=== PATIENT | female | born 1995 | race Caucasian/White ===

== ENCOUNTER 2017-02-15 20:14 | Inpatient (IN) | payer MEDICAID ==
[~2017-02-15] VITALS: Ht 160 cm; Wt 83.0 kg
[~2017-02-15 20:14] MED LIST: RISP.5 PO
[2017-02-15] MEDS ORDERED: HALOPERIDOL 5 MG TABLET PO PRN (21:30)
[2017-02-15] MEDS ORDERED: LORazepam 2 MG TABLET PO PRN (21:30)
[2017-02-15 22:15] VITALS: BP 127/77
[2017-02-16 00:10] VITALS: BP 125/73
[2017-02-16] MEDS: ZOLPIDEM TARTRATE 10 MG TABLET PO PRN ×2 (02:09→20:33)
[2017-02-16 07:47] LABS: BASOPHILS % (AUTO) 0.3 % (0.0-2.0); HEMATOCRIT 38.3 % (36-46); HEMOGLOBIN 12.7 g/dL (12.0-16.0); LYMPHOCYTES # (AUTO) 2.5 K/uL (1.0-4.8); LYMPHOCYTES % (AUTO) 32.7 % (22.0-44.0); MEAN CORPUSCULAR HEMOGLOBIN 30.6 pg (26.0-34.0); MEAN CORPUSCULAR HGB CONC 33.2 G/dL (31.0-37.0); MEAN CORPUSCULAR VOLUME 92 fL (80-100); MONOCYTES # (AUTO) 0.6 K/uL (0.1-1.0); MONOCYTES % (AUTO) 8.1 % (2.0-9.0); NEUTROPHILS # (AUTO) 4.4 K/uL (1.8-7.7); NEUTROPHILS % (AUTO) 56.9 % (40.0-70.0); PLATELET COUNT (AUTO) 314 K/uL (150-450); RED BLOOD CELL COUNT(AUTO) 4.16 MIL/uL (4.00-5.20); RED CELL DISTRIBUTION WIDTH 12.8 % (11.5-14.5); WHITE BLOOD COUNT (AUTO) 7.7 K/uL (4.5-11.0)
[2017-02-16 08:33] LABS: ALANINE AMINOTRANSFERASE 14 U/L (12-78); ALBUMIN 3.8 g/dL (3.4-5.0); ANION GAP 12 mmol/L (8-16); ASPARTATE AMINOTRANSFERASE 12 U/L (15-37); CALCIUM, TOTAL 8.9 mg/dL (8.8-10.5); CARBON DIOXIDE 23 mmol/L (22-29); CHLORIDE 106 mmol/L (98-107); GLOMERULAR FILTR. RATE CALC > 60 mL/min (>60); POTASSIUM 4.2 mmol/L (3.5-5.1); SODIUM SERUM 141 mmol/L (136-145); THYROID STIMULATING HORMONE 1.87 uIU/mL (0.36-3.74); TOTAL PROTEIN, SERUM 7.4 g/dL (6.4-8.2); UREA NITROGEN, BLOOD 8 mg/dL (7-18)
[2017-02-16] MEDS: LITHIUM CARBONATE 300 MG CAPSULE PO SCH ×2 (08:47→17:28)
[2017-02-16 08:51] LABS: LITHIUM < 0.20 mmol/L (0.60-1.20)
[2017-02-16 16:16] VITALS: BP 113/68
[2017-02-16] MEDS: RisperiDONE 0.5 MG TABLET PO SCH ×2 (17:28→20:33)
[2017-02-17 06:31] VITALS: BP 108/72
[2017-02-17] MEDS: RisperiDONE 0.5 MG TABLET PO SCH ×3 (09:55→20:13)
[2017-02-17] MEDS: LITHIUM CARBONATE 300 MG CAPSULE PO SCH ×2 (09:55→16:39)
[2017-02-17 16:19] VITALS: BP 134/92
[2017-02-17] MEDS: ZOLPIDEM TARTRATE 10 MG TABLET PO PRN (20:13)
[2017-02-18 01:36] VITALS: BP 117/83
[2017-02-18 08:18] VITALS: BP 115/67
[2017-02-18] MEDS: RisperiDONE 0.5 MG TABLET PO SCH ×3 (08:55→20:12)
[2017-02-18] MEDS: LITHIUM CARBONATE 300 MG CAPSULE PO SCH ×2 (08:55→16:38)
[2017-02-18 16:07] VITALS: BP 133/87
[2017-02-18] MEDS ORDERED: OMEPRAZOLE 20 MG CAPSULE PO ONE (19:45)
[2017-02-18] MEDS: ZOLPIDEM TARTRATE 10 MG TABLET PO PRN (20:12)
[2017-02-19 06:47] VITALS: BP 124/65
[2017-02-19 08:07] VITALS: BP 117/63
[2017-02-19] MEDS ORDERED: LITH300C3 PO (08:16)
[2017-02-19] MEDS ORDERED: OMEP20 PO (08:16)
[2017-02-19] MEDS ORDERED: RISP.5 PO (08:16)
[2017-02-19] MEDS: LITHIUM CARBONATE 300 MG CAPSULE PO SCH (08:18)
[2017-02-19] MEDS: RisperiDONE 0.5 MG TABLET PO SCH (08:18)
[2017-02-19] MEDS ORDERED: OMEPRAZOLE 20 MG CAPSULE PO SCH (09:00)
== END 2017-02-19 12:25 | disposition home or self-care (01) | DRG 750 ==
LOC: B3A 21:58 → EDSTATUS 23:10
PROVIDERS: ADMIT Psychiatry & Neurology Psychiatry; ATTEND Psychiatry & Neurology Psychiatry
DX: F20.0 Paranoid schizophrenia (principal); F32.9 Major depressive disorder, single episode, unspecified; F25.9 Schizoaffective disorder, unspecified; F41.9 Anxiety disorder, unspecified; K21.9 Gastro-esophageal reflux disease without esophagitis; Z63.72 Alcoholism and drug addiction in family
CPT/HCPCS: 84436; 84439; 84443

== ENCOUNTER 2021-07-15 11:37 | Emergency (ER) | payer MEDICAID, SELFPAY ==
[~2021-07-15] VITALS: Ht 154.9 cm; Wt 63.6 kg
[~2021-07-15 11:37] MED LIST changes: +LITH300C3 PO; +OMEP20 PO; -RISP.5 PO; +RISP0.5T39 PO
[2021-07-15 14:16] LABS: APPEARANCE,URINE CLOUDY (CLEAR); BILIRUBIN,URINE NEGATIVE (NEGATIVE); GLUCOSE, URINE (UA) NEGATIVE (NEGATIVE); KETONES,URINE NEGATIVE (NEGATIVE); LEUKOCYTE ESTERASE ,URINE NEGATIVE (NEGATIVE); NITRATE,URINE NEGATIVE (NEGATIVE); OCCULT BLOOD,URINE LARGE (NEGATIVE); PROTEIN,URINE NEGATIVE (NEGATIVE); UROBILINOGEN,URINE 0.2 mg/dL (<=1.0)
[2021-07-15 14:30] LABS: BACTERIA,URINE None Seen /HPF (None Seen); SQUAMOUS EPITHELIAL CELL,UR Few /LPF (None Seen); WBC,URINE None Seen /HPF (0-5)
[2021-07-15 14:45] LABS: BASOPHILS % (AUTO) 0.3 % (0.0-2.0); EOSINOPHILS % (AUTO) 0.8 % (1.0-6.0); HEMATOCRIT 39.9 % (36-46); HEMOGLOBIN 13.3 g/dL (12.0-16.0); LYMPHOCYTES # (AUTO) 2.3 K/uL (1.0-4.8); LYMPHOCYTES % (AUTO) 42.2 % (22.0-44.0); MEAN CORPUSCULAR HEMOGLOBIN 31.8 pg (26.0-34.0); MEAN CORPUSCULAR HGB CONC 33.3 G/dL (31.0-37.0); MEAN CORPUSCULAR VOLUME 95 fL (80-100); MONOCYTES # (AUTO) 0.5 K/uL (0.1-1.0); NEUTROPHILS # (AUTO) 2.5 K/uL (1.8-7.7); NEUTROPHILS % (AUTO) 46.7 % (40.0-70.0); PLATELET COUNT (AUTO) 272 K/uL (150-450); RED BLOOD CELL COUNT(AUTO) 4.19 MIL/uL (4.00-5.20); RED CELL DISTRIBUTION WIDTH 12.5 % (11.5-14.5)
[2021-07-15 14:49] LABS: ANION GAP 8 mmol/L (8-16); CALCIUM, TOTAL 8.9 mg/dL (8.8-10.5); CARBON DIOXIDE 26 mmol/L (22-29); CHLORIDE 106 mmol/L (98-107); GLOMERULAR FILTR. RATE CALC > 60 mL/min (>60); GLUCOSE,RANDOM 105 mg/dL (70-110); POTASSIUM 4.2 mmol/L (3.5-5.1); SODIUM SERUM 140 mmol/L (136-145); UREA NITROGEN, BLOOD 9 mg/dL (7-18)
[2021-07-15 14:51] LABS: INR 1.1 (0.9-1.1); PROTHROMBIN TIME 11.2 SEC (9.4-11.6)
[2021-07-15 15:04] LABS: ALANINE AMINOTRANSFERASE 22 U/L (12-78); ALKALINE PHOSPHATASE 79 U/L (46-116); ASPARTATE AMINOTRANSFERASE 10 U/L (15-37); BILIRUBIN,TOTAL 0.6 mg/dL (0.1-1.0); HCG,QUANTITATIVE < 1 mIU/mL (0-6)
[2021-07-15 15:22] VITALS: BP 116/60
== END 2021-07-15 15:35 | disposition home or self-care (01) ==
LOC: EMS 11:41
DX: D27.0 Benign neoplasm of right ovary (principal); F31.9 Bipolar disorder, unspecified; F20.9 Schizophrenia, unspecified
CPT/HCPCS: 76856; 80053; 81001; 84702; 85025; 85610; 86901; 99284